=== PATIENT | female | born 1960 | race African-American/Black ===

== ENCOUNTER 2018-02-12 08:31 | Emergency (ER) | payer MEDICARE, MEDICAID ==
[~2018-02-12] VITALS: Ht 157.5 cm; Wt 109.0 kg
[2018-02-12] MEDS ORDERED: KETOROLAC 30MG/ML VIAL IV STA (09:10)
[2018-02-12] MEDS ORDERED: ONDANSETRON HCL 4MG/2ML INJ IV STA (09:10)
[2018-02-12] MEDS ORDERED: SODIUM CHLORIDE 0.9% 1,000 ML IV ONE (09:10)
[2018-02-12 09:23] LABS: COLOR URINE YELLOW (YELLOW); KETONES URINE NEGATIVE (NEGATIVE); LEUKOCYTE ESTERASE URINE NEGATIVE (NEGATIVE); NITRITE URINE NEGATIVE (NEGATIVE); OCCULT BLOOD URINE NEGATIVE (NEGATIVE); PROTEIN URINE 2+ (NEGATIVE); UROBILINOGEN URINE 0.2 E.U./dL (0.2-1.0)
[2018-02-12 09:25] LABS: CLARITY URINE CLEAR (CLEAR)
[2018-02-12 10:01] LABS: CHLORIDE 104 mEq/L (98-107); INR 1.1; PROTHROMBIN TIME 10.6 sec (9.1-11.1)
[2018-02-12 10:34] LABS: BASOPHILS % 0.8 % (0.0-2.0); EOSINOPHILS % 3.8 % (0.0-5.0); HEMOGLOBIN. 13.2 g/dL (12.0-16.0); LYMPHOCYTES % 34.2 % (20.0-50.0); MEAN CORPUSCULAR HEMOGLOBIN 27.5 pg (28.0-32.0); MEAN CORPUSCULAR VOLUME 83.6 fL (81.0-99.0); MEAN PLATELET VOLUME 8.3 fl (7.4-10.4); MONOCYTES % 7.4 % (2.0-8.0); NEUTROPHILS % 53.8 % (40.0-76.0); PLATELET 422 x1000/uL (130-400); RED BLOOD CELL COUNT 4.78 mill/uL (4.2-5.4)
[2018-02-12 10:43] VITALS: BP 185/76
== END 2018-02-12 11:23 | disposition home or self-care (01) ==
LOC: ER 08:31
DX: S29.012A Strain of muscle and tendon of back wall of thorax, initial encounter (principal); I10 Essential (primary) hypertension; E11.9 Type 2 diabetes mellitus without complications; X58.XXXA Exposure to other specified factors, initial encounter; Y93.89 Activity, other specified; Y92.89 Other specified places as the place of occurrence of the external cause; Y99.8 Other external cause status
CPT/HCPCS: 36415; 80053; 81003; 82962; 83690; 85025; 85610; 96374; 96375; 99285; J1885; J2405; J7030

== ENCOUNTER 2023-09-01 07:32 | Inpatient (IN) | payer MEDICARE, MEDICAID ==
[~2023-09-01] VITALS: Ht 157.5 cm; Wt 105.7 kg
[2023-09-01] VITALS (43 sets, daily range): BP systolic 122–187; BP diastolic 70–144; PULSE 93–116; RESP 15–43; TEMP 98.7–99.3
[2023-09-01] MEDS ORDERED: HEPARIN 1000 UNITS/ML 10ML ONE ×2 (07:49→10:59)
[2023-09-01] MEDS ORDERED: MIDAZOLAM HCL 2 MG/2 ML VIAL ONE ×2 (07:49→10:28)
[2023-09-01] MEDS ORDERED: FENTANYL CITRATE/PF 50MCG/ML 2ML VIAL ONE ×2 (07:49→10:28)
[2023-09-01] MEDS ORDERED: LIDOCAINE HCL 1% 20ML VIAL (Pyxis) INJ ONE ×2 (07:50→10:59)
[2023-09-01] MEDS ORDERED: IODIXANOL 320MG/ML 100 ML BOTTLE IV ONE ×2 (07:50→11:24)
[2023-09-01 07:58] LABS: BASOPHILS % 0.4 % (0.0-2.0); EOSINOPHILS % 1.7 % (0.0-5.0); HEMATOCRIT. 39.6 % (36.0-48.0); HEMOGLOBIN. 12.6 g/dL (12.0-16.0); LYMPHOCYTES % 32.9 % (20.0-50.0); MEAN CORPUSCULAR HEMOGLOBIN 28.2 pg (28.0-32.0); MEAN CORPUSCULAR HGB CONC 31.8 g/dL (31.0-37.0); MEAN CORPUSCULAR VOLUME 88.7 fL (81.0-99.0); MEAN PLATELET VOLUME 7.9 fl (7.4-10.4); MONOCYTES % 9.2 % (2.0-8.0); NEUTROPHILS % 55.8 % (40.0-76.0); PLATELET 542 x1000/uL (130-400); RED BLOOD CELL COUNT 4.46 mill/uL (4.2-5.4); RED CELL DISTRIBUTION WIDTH 14.1 % (11.6-14.6); WHITE BLOOD COUNT 10.7 x1000/uL (4.5-11.0)
[2023-09-01] MEDS: ASPIRIN 325MG TABLET PO ONE (08:12)
[2023-09-01] MEDS: HEPARIN 5000 UNITS/ML VIAL IV ONE (08:13)
[2023-09-01 08:41] LABS: SODIUM 139 mEq/L (136-145)
[2023-09-01 08:42] LABS: CALCIUM 8.6 mg/dL (8.7-10.4); CARBON DIOXIDE 20 mEq/L (21-32); CHLORIDE 109 mEq/L (98-107); CREATININE 1.1 mg/dL (0.6-1.0); GLUCOSE 175 mg/dL (70-105); UREA NITROGEN BLOOD 12 mg/dL (9-23)
[2023-09-01 08:46] LABS: TROPONIN I HIGH SENSITIVITY 34368 ng/L (3.0-34)
[2023-09-01] MEDS ORDERED: ONDANSETRON HCL 4MG/2ML INJ IV ONE (10:00)
[2023-09-01] MEDS ORDERED: ONDANSETRON HCL 4MG/2ML INJ IV PRN (10:15)
[2023-09-01] MEDS ORDERED: IPRATROPIUM/ALBUTEROL 0.5-3(2.5)MG/3ML NEB HHN PRN (10:15)
[2023-09-01] MEDS ORDERED: MAGNESIUM/ALUMINUM HYDROXIDE/SIMETHICONE 30ML UDC PO PRN (10:15)
[2023-09-01] MEDS ORDERED: ACETAMINOPHEN 325MG TABLET PO PRN (10:15)
[2023-09-01 10:21] LABS: TROPONIN I HIGH SENSITIVITY 22394 ng/L (3.0-34)
[2023-09-01] MEDS ORDERED: DEXTROSE 50% WATER 50ML SYRINGE IV PRN ×2 (10:45→11:00)
[2023-09-01] MEDS ORDERED: EPTIFIBATIDE 2 MG/ML 10ML VIAL IV ONE ×2 (11:15→11:20)
[2023-09-01] MEDS ORDERED: TICAGRELOR 90 MG TABLET PO ONE (11:15)
[2023-09-01 11:56] LABS: ALBUMIN 5.2 g/dL (3.2-4.8); T4 FREE 1.19 ng/dL (0.89-1.76); THYROID STIMULATING HORMONE 1.84 uIU/mL (0.55-4.78)
[2023-09-01] MEDS ORDERED: SODIUM CHLORIDE 0.45% 1,000 ML IV SCH (12:00)
[2023-09-01] MEDS ORDERED: ATROPINE SULFATE 1MG/10ML SYR IV PRN (12:00)
[2023-09-01] MEDS ORDERED: BLOOD SUGAR DIAGNOSTIC STRIP TEST SCH (12:58)
[2023-09-01] MEDS: INSULIN LISPRO 100 UNITS/ML SUBCUT SCH (13:10)
[2023-09-01] MEDS: BLOOD SUGAR DIAGNOSTIC STRIP TEST SCH (13:10)
[2023-09-01] MEDS ORDERED: INSULIN LISPRO 100 UNITS/ML SUBCUT SCH (13:20)
[2023-09-01] MEDS: CARVEDILOL 3.125 MG TABLET PO SCH (17:15)
[2023-09-01] MEDS: TICAGRELOR 90 MG TABLET PO SCH (17:16)
[2023-09-01 17:19] LABS: LACTIC ACID 3.7 mmol/L (0.4-2.0)
[2023-09-01 18:18] LABS: TROPONIN I HIGH SENSITIVITY > 125000 ng/L (3.0-34)
[2023-09-01] MEDS: CLONIDINE 0.1MG TABLET PO PRN (19:22)
[2023-09-01] MEDS: ATORVASTATIN CALCIUM 40MG TABLET PO SCH (21:49)
[2023-09-02] VITALS (51 sets, daily range): BP systolic 92–136; BP diastolic 51–77; PULSE 60–106; RESP 0–32; TEMP 97.6–99
[2023-09-02 01:09] LABS: CREATINE KINASE 264 IU/L (34-145)
[2023-09-02 03:02] LABS: CREATINE KINASE 4024 IU/L (34-145)
[2023-09-02 03:32] LABS: TROPONIN I HIGH SENSITIVITY > 25000 ng/L (3.0-34)
[2023-09-02 06:29] LABS: BASOPHILS % 0.5 % (0.0-2.0); EOSINOPHILS % 0.1 % (0.0-5.0); HEMATOCRIT 42.1 % (36.0-48.0); HEMATOCRIT. 42.1 % (36.0-48.0); HEMOGLOBIN 13.8 g/dL (12.0-16.0); HEMOGLOBIN. 13.8 g/dL (12.0-16.0); LYMPHOCYTES % 10.6 % (20.0-50.0); MEAN CORPUSCULAR HEMOGLOBIN 28.3 pg (28.0-32.0); MEAN CORPUSCULAR HGB CONC 32.9 g/dL (31.0-37.0); MEAN CORPUSCULAR VOLUME 86.1 fL (81.0-99.0); MONOCYTES % 6.9 % (2.0-8.0); NEUTROPHILS % 81.9 % (40.0-76.0); RED BLOOD CELL COUNT 4.88 mill/uL (4.2-5.4); WHITE BLOOD COUNT 17.6 x1000/uL (4.5-11.0)
[2023-09-02 06:44] LABS: CALCIUM 9.1 mg/dL (8.7-10.4); CARBON DIOXIDE 19 mEq/L (21-32); CHLORIDE 104 mEq/L (98-107); GLUCOSE 158 mg/dL (70-105); POTASSIUM 4.6 mEq/L (3.5-5.1); SODIUM 137 mEq/L (136-145); UREA NITROGEN BLOOD 13 mg/dL (9-23)
[2023-09-02 07:37] LABS: DIFFERENTIAL COMMENT 1
[2023-09-02 08:31] LABS: MEAN PLATELET VOLUME 7.9 fl (7.4-10.4); PLATELET 539 x1000/uL (130-400)
[2023-09-02] MEDS: ASPIRIN 81MG EC TABLET PO SCH (09:00)
[2023-09-02 09:08] LABS: BG BASE EXCESS -5.9 mmol/L (-2.0-2.0); BG CARBOXYHEMOGLOBIN 0.3 % (0.5-1.5); BG FRACTION INSPIRED OXYGEN 21; BG HCO3 ACT 15.9 mmol/L (22.0-26.0); BG METHEMOGLOBIN 0.3 % (0.0-1.5); BG OXYHEMOGLOBIN 96.4 % (94.0-97.0); BG PCO2 22.6 mmHg (35.0-45.0); BG PH 7.466 (7.350-7.450); BG PO2 90.6 mmHg (75.0-100.0); BG SAMPLE SITE LEFT BRACHIAL; BG TOTAL HEMOGLOBIN 12.7 g/dL (12.0-18.0); BG VENT MODE ROOM AIR
[2023-09-03] VITALS (84 sets, daily range): BP systolic 99–157; BP diastolic 42–130; PULSE 54–125; RESP 0–35; TEMP 97.2–99.1
[2023-09-03 05:23] LABS: HEMATOCRIT 36.9 % (36.0-48.0); HEMOGLOBIN 12.1 g/dL (12.0-16.0); MEAN CORPUSCULAR HGB CONC 32.7 g/dL (31.0-37.0); MEAN CORPUSCULAR VOLUME 85.6 fL (81.0-99.0); PLATELET 519 x1000/uL (130-400); RED CELL DISTRIBUTION WIDTH 14.1 % (11.6-14.6)
[2023-09-03 05:42] LABS: CALCIUM 9.1 mg/dL (8.7-10.4); CREATININE 1.2 mg/dL (0.6-1.0); POTASSIUM 4.7 mEq/L (3.5-5.1)
[2023-09-03 09:30] LABS: INR 1.1; PARTIAL THROMBOPLASTIN TIME 34.2 sec (23.4-31.0); PROTHROMBIN TIME 12.2 sec (9.6-11.0)
[2023-09-03] MEDS: PIPERACILLIN/TAZO 3.375G/50ML 50 ML IV SCH (11:33)
[2023-09-03] MEDS: VANCOMYCIN 2,000 MG in DEXT 5% WATER 500 ML IV NR (16:53)
[2023-09-03] MEDS: TICAGRELOR 90 MG TABLET PO SCH (16:53)
[2023-09-03] MEDS: DEXT 5%/0.9% NACL 1,000 ML IV SCH (17:05)
[2023-09-04] VITALS (42 sets, daily range): BP systolic 99–152; BP diastolic 51–111; PULSE 92–112; RESP 15–33; TEMP 97.9–99.1
[2023-09-04 06:08] LABS: HEMOGLOBIN 11.7 g/dL (12.0-16.0); MEAN CORPUSCULAR HEMOGLOBIN 27.5 pg (28.0-32.0); MEAN CORPUSCULAR HGB CONC 31.5 g/dL (31.0-37.0); MEAN CORPUSCULAR VOLUME 87.3 fL (81.0-99.0); PLATELET 423 x1000/uL (130-400); RED BLOOD CELL COUNT 4.24 mill/uL (4.2-5.4); RED CELL DISTRIBUTION WIDTH 14.3 % (11.6-14.6); WHITE BLOOD COUNT 17.4 x1000/uL (4.5-11.0)
[2023-09-04 06:12] LABS: CALCIUM 8.3 mg/dL (8.7-10.4); CARBON DIOXIDE 21 mEq/L (21-32); CHLORIDE 106 mEq/L (98-107); GLUCOSE 186 mg/dL (70-105); POTASSIUM 4.4 mEq/L (3.5-5.1); SODIUM 137 mEq/L (136-145); UREA NITROGEN BLOOD 18 mg/dL (9-23)
[2023-09-04] MEDS: ASPIRIN 81MG TABLET PO SCH (08:34)
[2023-09-04] MEDS ORDERED: HYDRALAZINE 20MG/ML VIAL IV PRN (11:45)
[2023-09-04] MEDS: VANCOMYCIN 1GM/200ML PMX (BAXTER) IV SCH (12:20)
[2023-09-05] VITALS (29 sets, daily range): BP systolic 98–138; BP diastolic 58–87; PULSE 88–119; RESP 16–31; TEMP 98.2–98.6
[2023-09-05 05:41] LABS: BASOPHILS % 0.5 % (0.0-2.0); EOSINOPHILS % 1.3 % (0.0-5.0); HEMATOCRIT. 31.5 % (36.0-48.0); HEMOGLOBIN. 10.4 g/dL (12.0-16.0); LYMPHOCYTES % 11.4 % (20.0-50.0); MEAN CORPUSCULAR HEMOGLOBIN 28.2 pg (28.0-32.0); MEAN CORPUSCULAR HGB CONC 33.1 g/dL (31.0-37.0); MEAN CORPUSCULAR VOLUME 85.1 fL (81.0-99.0); MEAN PLATELET VOLUME 8.1 fl (7.4-10.4); MONOCYTES % 8.7 % (2.0-8.0); NEUTROPHILS % 78.1 % (40.0-76.0); PLATELET 459 x1000/uL (130-400); RED CELL DISTRIBUTION WIDTH 13.8 % (11.6-14.6); WHITE BLOOD COUNT 11.8 x1000/uL (4.5-11.0)
[2023-09-05 05:52] LABS: CARBON DIOXIDE 22 mEq/L (21-32); CHLORIDE 108 mEq/L (98-107); CREATININE 0.8 mg/dL (0.6-1.0); GLUCOSE 146 mg/dL (70-105); POTASSIUM 3.7 mEq/L (3.5-5.1); SODIUM 138 mEq/L (136-145); UREA NITROGEN BLOOD 11 mg/dL (9-23)
[2023-09-05] MEDS: PANTOPRAZOLE 40MG DR TABLET PO SCH (09:00)
[2023-09-06] VITALS (23 sets, daily range): BP systolic 88–147; BP diastolic 47–112; PULSE 85–108; RESP 14–26; TEMP 97.6–98
[2023-09-06 05:36] LABS: CALCIUM 8.4 mg/dL (8.7-10.4); CARBON DIOXIDE 23 mEq/L (21-32); CHLORIDE 108 mEq/L (98-107); CREATININE 0.8 mg/dL (0.6-1.0); GLUCOSE 147 mg/dL (70-105); SODIUM 138 mEq/L (136-145); UREA NITROGEN BLOOD 9 mg/dL (9-23)
[2023-09-06 05:39] LABS: HEMATOCRIT 29.5 % (36.0-48.0); HEMOGLOBIN 9.7 g/dL (12.0-16.0); MEAN CORPUSCULAR HEMOGLOBIN 28.4 pg (28.0-32.0); MEAN CORPUSCULAR HGB CONC 32.9 g/dL (31.0-37.0); MEAN CORPUSCULAR VOLUME 86.2 fL (81.0-99.0); PLATELET 470 x1000/uL (130-400); RED BLOOD CELL COUNT 3.43 mill/uL (4.2-5.4); RED CELL DISTRIBUTION WIDTH 14.2 % (11.6-14.6); WHITE BLOOD COUNT 11.5 x1000/uL (4.5-11.0)
[2023-09-06] MEDS: DOCUSATE SODIUM 100MG CAPSULE PO PRN (21:57)
[2023-09-06] MEDS: ACETAMINOPHEN 325MG TABLET PO PRN (21:57)
[2023-09-07] VITALS (18 sets, daily range): BP systolic 88–130; BP diastolic 53–104; PULSE 88–106; RESP 17–28; TEMP 97.8–98.6; O2SAT 94
== END 2023-09-07 15:55 | DRG 321 ==
LOC: ER 07:44 → CVICU 09:26
PROVIDERS: ADMIT Internal Medicine; ATTEND Internal Medicine
PROC: 02C03ZZ Extirpation of Matter from Coronary Artery, One Artery, Percutaneous Approach (ICD-10-PCS; principal; 2023-09-01)
PROC: 027034Z Dilation of Coronary Artery, One Artery with Drug-eluting Intraluminal Device, Percutaneous Approach (ICD-10-PCS; 2023-09-01)
PROC: 4A023N7 Measurement of Cardiac Sampling and Pressure, Left Heart, Percutaneous Approach (ICD-10-PCS; 2023-09-01)
PROC: B211YZZ Fluoroscopy of Multiple Coronary Arteries using Other Contrast (ICD-10-PCS; 2023-09-01)
PROC: B215YZZ Fluoroscopy of Left Heart using Other Contrast (ICD-10-PCS; 2023-09-01)
PROC: B240ZZ3 Ultrasonography of Single Coronary Artery, Intravascular (ICD-10-PCS; 2023-09-01)
DX: T82.867A Thrombosis due to cardiac prosthetic devices, implants and grafts, initial encounter (principal); I21.29 ST elevation (STEMI) myocardial infarction involving other sites; I63.532 Cerebral infarction due to unspecified occlusion or stenosis of left posterior cerebral artery; I44.2 Atrioventricular block, complete; Z68.41 Body mass index [BMI] 40.0-44.9, adult; E66.01 Morbid (severe) obesity due to excess calories; I95.9 Hypotension, unspecified; E78.5 Hyperlipidemia, unspecified; E11.9 Type 2 diabetes mellitus without complications; I10 Essential (primary) hypertension; I25.10 Atherosclerotic heart disease of native coronary artery without angina pectoris; Z79.82 Long term (current) use of aspirin; Z86.73 Personal history of transient ischemic attack (TIA), and cerebral infarction without residual deficits; Z79.899 Other long term (current) drug therapy; Y83.8 Other surgical procedures as the cause of abnormal reaction of the patient, or of later complication, without mention of misadventure at the time of the procedure; Y92.89 Other specified places as the place of occurrence of the external cause
CPT/HCPCS: 36415; 36600; 70551; 71045; 80048; 80061; 82040; 82375; 82550; 82553; 82805; 82962; 83036; 83605; 83735; 84145; 84439; 84443; 84484; 85025; 85027; 85347; 86850; 86900; 92610; 92941; 92973; 92978; 93005; 93306; 93458; 93880; 93970; 97110; 97116; 97162; 97167; 97530; 97535; 99291; C1725; C1753; C1769; C1874; C1887; C1893; J1327; J1644; J1815; J2250; J2543; J3010; J3370; J3490; J7042; J7060; Q9967; J8499